=== PATIENT | male | born 1955 | race Caucasian/White ===

== ENCOUNTER → 2017-03-01 | Outpatient (CLI) | payer BC | LOC: MOB LAB 09:53 | PROVIDERS: ATTEND Physician Assistant Medical | DX: R30.0 Dysuria (principal) | CPT/HCPCS: 87077; 87088; 87186 ==

== ENCOUNTER → 2017-03-31 | Outpatient (CLI) | payer BC ==
--- NOTE | 2017-03-31 15:02 | DI ---
XR ELBOW COMPLETE MIN 3VW,03/31/2017 10:38 AM: Clinical History: Left elbow pain Previous Exam: None at this facility. Findings: 3 views of the left elbow are obtained, and demonstrate anatomic alignment without fractures. Surroun ding soft tissues are unremarkable. Impression: Normal left elbow.
== END ==
LOC: ORTHO 11:04
PROVIDERS: ATTEND Orthopaedic Surgery
DX: M25.522 Pain in left elbow (principal); M77.02 Medial epicondylitis, left elbow
CPT/HCPCS: 73080